=== PATIENT | male | born 1995 | race Caucasian/White ===

== ENCOUNTER 2019-11-17 22:41 | Emergency (ER) | payer MEDICAID ==
[~2019-11-17] VITALS: Ht 182.9 cm; Wt 72.6 kg
[2019-11-17 22:48] VITALS: BP_SYST 108
--- NOTE | 2019-11-17 22:52 | NUR ---
Placed in room 03 . Placed on potline monitor, blood pressure machine and pulse oximeter. To gown for exam. Seizure precautions in place. Seizure pads applied to gurney.Side rails up. Report given to TOBY ESTRADA
--- NOTE | 2019-11-17 22:52 | NUR ---
Pt to ER r/t witness tonic/clonic seizure activity reported to have lasted ~3 minutes at 1 hour [employer]. Pt AAOx4, clear and coherent speech. Pt states that he takes Dilantin and Valproic acid as Rx. Pt c/o H/A and "spinal pain." Denies c/o C/P or SOB. Pt denies hitting head.
--- NOTE | 2019-11-17 22:55 | NUR ---
Dr. Verde at bedside to asses pt.
--- NOTE | 2019-11-17 23:50 | NUR ---
Lab at bedside.
[2019-11-18 00:38] LABS: BASOPHILS # (AUTO) 0.1 K/uL (0.0-0.2); BASOPHILS % (AUTO) 0.5 % (0.0-2.0); EOSINOPHILS # (AUTO) 0.1 K/uL (0.0-0.4); EOSINOPHILS % (AUTO) 0.5 % (0.0-4.0); HEMATOCRIT 43.3 % (36-54); HEMOGLOBIN 14.5 g/dL (14.0-18.0); LYMPHOCYTES # (AUTO) 0.9 K/uL (1.0-5.5); LYMPHOCYTES % (AUTO) 7.4 % (20.5-51.5); MEAN CORPUSCULAR HEMOGLOBIN 31 pg (27-31); MEAN CORPUSCULAR HGB CONC 34 % (32-36); MEAN CORPUSCULAR VOLUME 91 fL (79.0-98.0); MONOCYTES # (AUTO) 0.6 K/uL (0.0-1.0); MONOCYTES % (AUTO) 5.1 % (1.7-9.3); NEUTROPHILS # (AUTO) 10.3 K/uL (1.8-7.7); NEUTROPHILS % (AUTO) 86.5 % (40.0-70.0); PLATELET COUNT (AUTO) 275 K/uL (130-430); RED BLOOD CELL COUNT(AUTO) 4.74 MIL/uL (4.2-6.2); RED CELL DISTRIBUTION WIDTH 12.8 % (9.0-15.0); WHITE BLOOD COUNT (AUTO) 11.9 K/uL (4.8-10.8)
[2019-11-18 00:58] LABS: ANION GAP 8 (5-15); CALCIUM 8.4 mg/dL (8.4-11.0); CHLORIDE 102 mmol/L (98-107); GLUCOSE 96 mg/dL (70-99); POTASSIUM 3.3 mmol/L (3.5-5.1); SODIUM SERUM 135 mmol/L (136-145); UREA NITROGEN, BLOOD 13 mg/dL (8-21)
[2019-11-18 01:00] LABS: GFR AFRICAN AMERICAN 154 mL/min (>90)
[2019-11-18 01:03] LABS: ALANINE AMINOTRANSFERASE 48 U/L (12-78); ALBUMIN 4.5 g/dL (3.4-4.8); ASPARTATE AMINOTRANSFERASE 24 U/L (10-37); PHENYTOIN (DILANTIN) 2.9 ug/mL (10.0-20.0); TOTAL BILIRUBIN 0.3 mg/dL (0.0-1.0); VALPROIC ACID 25 ug/mL (50-100)
[2019-11-18 01:04] LABS: ALCOHOL, BLOOD < 3 mg/dL (<10)
[2019-11-18] MEDS ORDERED: PHENYTOIN SODIUM INJ 1,000 MG in NS 100 ML IV ONE (01:45)
[2019-11-18] MEDS ORDERED: VALPROIC ACID 250 MG CAPSULE (DEPAKENE) PO ONE (01:45)
--- NOTE | 2019-11-18 02:00 | NUR ---
Pt c/o severe back pain. Pt friend approaches nurses station stating "If he isn't getting anything for pain then we're leaving." Dr. Verde made aware and pt to be medicated with PO pain medication.
[2019-11-18] MEDS ORDERED: HYDROcodone/ACETAMIN 7.5-325 MG TAB PO ONE (02:15)
[2019-11-18] MEDS ORDERED: PHENYTOIN SODIUM 250 MG/5 ML INJ. VIAL IV ONE (02:32)
[2019-11-18] MEDS ORDERED: VALPROIC ACID 250 MG CAPSULE (DEPAKENE) ONE (02:36)
--- NOTE | 2019-11-18 02:45 | NUR ---
Pt verbalizes improvement in pain. Alert talking with friend, no needs verbalized at this time. VSS. No seizure activity observed or reported.
--- NOTE | 2019-11-18 02:55 | NUR ---
Pt up to restroom. Ambulates with steady gait. No needs verbalized at this time.
--- NOTE | 2019-11-18 03:15 | NUR ---
No needs verbalized at this time. VSS. No seizure activity observed or reported.
--- NOTE | 2019-11-18 03:30 | NUR ---
No needs verbalized. VSS. NAD. Friend at bedside. Dilantin infusion continues to patent and secure PIV LHA without s/s infiltraion and no c/o burning to site.
--- NOTE | 2019-11-18 03:30 | NUR ---
Note dudley in EDM - 11/18/19 at 0818 by MONI No needs verbalized. PETER. CHANEL. Friend at bedside. Dilantin infusion continues at 10 mL/hr to patent and secure PIV LHA without s/s infiltraion.
[2019-11-18 04:20] VITALS: BP_SYST 110
--- NOTE | 2019-11-18 04:20 | NUR ---
Patient given written and verbal discharge instructions and verbalizes understanding. ER MD discussed with patient the results and treatment provided. Patient in stable condition. ID arm band removed. IV catheter removed intact and dressing applied, no active bleeding. No Rx given. Patient educated on pain management and to follow up with PMD. Pain Scale 2/10. Opportunity for questions provided and answered. Medication side effect fact sheet provided.
== END 2019-11-18 04:20 | disposition home or self-care (01) ==
LOC: SED 22:41
DX: G40.409 Other generalized epilepsy and epileptic syndromes, not intractable, without status epilepticus (principal); F32.9 Major depressive disorder, single episode, unspecified; F17.210 Nicotine dependence, cigarettes, uncomplicated
CPT/HCPCS: 36415; 80053; 80164; 80185; 82550; 85025; 96365; 99283; G0482; J1165